=== PATIENT | female | born 1985 | race Caucasian/White ===

== ENCOUNTER 2017-01-22 04:26 | Emergency (ER) | payer OTHER ==
[~2017-01-22] VITALS: Ht 152.4 cm; Wt 72.1 kg
[2017-01-22 04:28] VITALS: BP 148/99
[2017-01-22] MEDS ORDERED: KETOROLAC 30 MG/1 ML ONE (04:52)
[2017-01-22] MEDS ORDERED: KETOROLAC 30 MG/1 ML IM ONE (05:00)
== END 2017-01-22 05:26 | disposition home or self-care (01) ==
LOC: ED 04:59
DX: S29.012A Strain of muscle and tendon of back wall of thorax, initial encounter (principal); X58.XXXA Exposure to other specified factors, initial encounter; Y93.89 Activity, other specified; Y92.89 Other specified places as the place of occurrence of the external cause; Y99.8 Other external cause status
CPT/HCPCS: 96372; 99283; J1885